=== PATIENT | female | born 1955 | race Caucasian/White ===

== ENCOUNTER 2018-05-28 06:29 | Day surgery (SDC) ==
[2018-05-28] MEDS: TETRACAINE 0.5% UNIT-DOSE OP PRN ×3 (06:40→07:35)
[2018-05-28] MEDS: BETADINE OPTH PREP OP PRN ×2 (06:41→07:23)
[2018-05-28] MEDS: CYCLOGYL 2% OPTH OP PRN ×3 (06:42→06:52)
[2018-05-28] MEDS ORDERED: ZOFRAN 4 MG/2 ML IVP ONE (06:56)
[2018-05-28] MEDS ORDERED: BRIMONIDINE TARTRATE 0.2% OPTH SOL OP PRN (06:56)
[2018-05-28] MEDS ORDERED: LIDOCAINE 1% 20 ML MDV ID STA (06:56)
[2018-05-28] MEDS: DEX-MOXI-KETOR OPTH INJ 1/0.5/0.4 MG/ML IO ONE ×2 (07:29→07:36)
[2018-05-28] MEDS: LIDOCAINE 1%/PHENYLEPHRINE 1.5% BSS (SURGERY) INTRAOCULA ONE ×2 (07:29→07:36)
[2018-05-28] MEDS: BSS WITH EPINEPHRINE OP ONE ×2 (07:29→07:36)
[2018-05-28] MEDS ORDERED: VERSED ONE (07:35)
[2018-05-28] MEDS ORDERED: SUBLIMAZE ONE (07:35)
[2018-05-30 12:00] VITALS: BP 112/56; TEMP 98.4
== END 2018-05-28 08:15 | disposition home or self-care (01) ==
LOC: SURG 06:29
PROVIDERS: ATTEND Ophthalmology
DX: H25.811 Combined forms of age-related cataract, right eye (principal)

== ENCOUNTER 2018-06-12 06:40 | Day surgery (SDC) ==
[2018-06-12] MEDS: BETADINE OPTH PREP OP PRN ×2 (06:55→08:05)
[2018-06-12] MEDS: TETRACAINE 0.5% UNIT-DOSE OP PRN ×2 (06:55→08:05)
[2018-06-12] MEDS: CYCLOGYL 2% OPTH OP PRN ×5 (06:56→07:06)
[2018-06-12] MEDS ORDERED: ZOFRAN 4 MG/2 ML IVP ONE (07:14)
[2018-06-12] MEDS ORDERED: BRIMONIDINE TARTRATE 0.2% OPTH SOL OP PRN (07:14)
[2018-06-12] MEDS ORDERED: LIDOCAINE 1%/PHENYLEPHRINE 1.5% BSS (SURGERY) INTRAOCULA ONE (07:14)
[2018-06-12] MEDS ORDERED: BSS WITH EPINEPHRINE OP ONE (07:14)
[2018-06-12] MEDS ORDERED: AK-DILATE 10% OPTH SOL OP PRN (07:14)
[2018-06-12] MEDS ORDERED: LIDOCAINE 1% 20 ML MDV ID STA (07:14)
[2018-06-12] MEDS ORDERED: DEX-MOXI-KETOR OPTH INJ 1/0.5/0.4 MG/ML IO ONE (07:14)
[2018-06-12] MEDS ORDERED: SUBLIMAZE ONE (08:05)
[2018-06-12] MEDS ORDERED: VERSED ONE (08:05)
[2018-06-12 12:22] VITALS: TEMP 97.6
[2018-06-13 11:18] VITALS: BP 132/56
== END 2018-06-12 08:50 | disposition home or self-care (01) ==
LOC: SURG 06:40
PROVIDERS: ATTEND Ophthalmology
DX: H25.813 Combined forms of age-related cataract, bilateral (principal)